=== PATIENT | male | born 2000 | race Caucasian/White ===

== ENCOUNTER 2024-04-11 10:44 | Emergency (ER) | payer MEDICAID, SELFPAY ==
[2024-04-11 10:44] VITALS: BP 97/67; PULSE 74; RESP 16; TEMP 36.6; O2SAT 98; BMI 19.8
[2024-04-11 11:19] LABS: Basophils % 0.4 %; Eosinophils # 0.1 10^3/uL (0.0-0.8); Eosinophils % 2.4 %; Hematocrit 42.7 % (37-53); Lymphocytes # 1.1 10^3/uL (0.8-4.8); Lymphocytes % 23.3 %; Mean Corpuscular HGB Conc 34.4 g/dL (30-55); Mean Corpuscular Hemoglobin 30.2 pg (27-33); Mean Corpuscular Volume 87.7 fl (82-101); Mean Platelet Volume 11.2 fL (7.4-10.4); Monocytes # 0.4 10^3/uL (0.2-0.9); Monocytes % 8.5 %; Neutrophils # 3.05 10^3/uL (1.8-7.7); Neutrophils % 65.2 %; Nucleated Red Blood Cells % 0 %; Platelet Count 171 10^3/cmm (157-399); Red Blood Count 4.87 10^6/uL (3.85-5.65); Red Cell Distribution Width 12.8 % (12.1-15.1); White Blood Count 4.68 10^3/uL (3.29-11.43)
[2024-04-11 11:34] LABS: Acetaminophen < 5.0 ug/mL (10-30); Alanine Aminotransferase 11 U/L (0-41); Albumin Level 4.5 g/dL (3.5-5.2); Alkaline Phosphatase 72 U/L (40-130); Anion Gap 14.1 (5-19); Aspartate Amino Transferase 14 U/L (0-40); Blood Urea Nitrogen 10 mg/dL (6-20); Carbon Dioxide 24 mmol/L (22-29); Chloride 107 mmol/L (98-107); Creatinine Clr Calc Pharmacy 130.1512; Globulin 2.6 g/dL (1.3-4.6); Glomerular Filtration Rate 118.8 mL/min (90-130); Glucose 102 mg/dL (65-115); Osmolality Calculated 291 mOsm/kg (285-295); Potassium 4.1 mmol/L (3.5-5.1); Salicylate < 0.3 mg/dL (3-10); Sodium 141 mmol/L (136-145); Total Bilirubin 0.5 mg/dL (0.15-1.2); Total Protein 7.1 g/dL (6.6-8.7)
--- NOTE | 2024-04-11 12:14 | ED.C_ITS ---
HPI - Psych 2 General: Chief Complaint: Psychiatric Symptoms Stated Complaint: MHE Time Seen by Provider: 04/11/24 10:49 History of Present Illness: This patient is a 24-year-old white male who presents to the emergency department after making a suicidal statement. Patient states he has been under a lot of stress at home. He is currently living with his father. Patient's andres? and their 2 children also live under their father's roof. Patient states he has been getting in arguments with his father on the weekends. States stress came to ahead today and he made a statement to his fisamy?e in the heat of the moment that he wanted to kill himself. Patient states that he does not feel like killing himself that this was just in the heat of the moment. Evidently police were called and they recommended he come into the emergency department for evaluation. Patient states he does have a history of depression and anxiety. States he did have a prior suicide attempt when he was a teenager but none since then. He states he had been on Lexapro couple of years ago which did work but he had stopped taking it. Other past medical history includes asthma. Related Data Previous Rx's Medication Instructions Recorded escitalopram oxalate 10 mg tablet 10 mg PO DAILY #30 tabs 04/11/24 (Lexapro) Allergies Allergy/AdvReac Type Severity Reaction Status Date / Time No Known Allergies Allergy Verified 04/11/24 10:53 Review of Systems 2 General: Reports: 10 or more systems reviewed and unremarkable except in HPI and below Physical Exam 2 Const: COMMON NORMALS: no acute distress, patient oriented x3 and no limitations GENERAL APPEARANCE: cooperative, comfortable and well kempt HENMT: COMMON NORMALS: normocephalic, atraumatic, Normal nasal mucous membranes and turbinates present, moist oral mucous membranes and oropharynx normal HEAD & SCALP: normal to inspection, normocephalic and atraumatic F WENDY & SINUS: normal facial exam NOSE: Normal nasal mucous membranes and turbinates present Eye: COMMON NORMALS: Equal, round and reactive pupils present, EOMs intact bilaterally and conjunctivae normal GENERAL EYE: appearance normal, both eyes and all related structures CONJUNCTIVA: Yes conjunctivae normal PUPIL: Yes Equal, round and reactive pupils present Neck/C-Spine: COMMON NORMALS: supple and no JVD Chest: COMMONS NORMALS: normal inspection of the chest Resp: COMMON NORMALS: normal respiratory effort and clear to auscultation bilaterally AUSCULTATION: clear to auscultation bilaterally Cardio: COMMON NORMALS: no JVD, regular rate, regular rhythm, No gallops present (Cardio), No murmurs present (Cardio) and No rub (Cardio) RATE: r egular rate RHYTHM: regular rhythm GI: COMMON NORMALS: Normal to inspection, nondistended, normoactive bowel sounds present, Soft to palpation and non-tender AUSCULTATION: Yes normoactive bowel sounds PALPATION: Yes Soft to palpation : COMMON NORMALS: Yes no CVA tenderness BLADDER/KIDNEY EXAM: Yes no CVA tenderness Back/Pelvis: COMMON NORMALS: no CVA tenderness and thoracic and lumbar spine normal to inspection Extremity: COMMON NORMALS: normal to inspection Neuro: COMMON NORMALS: patient oriented x3 and CN's II-XII intact bilaterally Psych: COMMON NORMALS: mental status grossly normal, Normal thought process present, cooperative and speech normal APPEARANCE: Yes grossly normal and Yes well kempt ATTITUDE: Yes calm and Yes engaged ACTIVITY/MOTOR BEHAVIOR: Yes appropriate eye contact SPEECH: Yes normal speech MOOD & AFFECT: Yes euthymic mood THOUGHT PROCESS: Normal thought process present THOUGHT CONTENT: Yes Normal thought content present ATTENTION/CONCENTRATION: Yes attention grossly intact MEMORY/COGNITION: Yes memory grossly intact I NSIGHT: Good insight present (Psych) JUDGEMENT: Good judgement present (Psych) Skin: COMMON NORMALS: no rashes or lesions noted, turgor normal and no jaundice GENERAL SKIN EXAM: no rashes or lesions noted and turgor normal Course 2 Vital Signs: Vital signs: Vital Signs Temperature 97.9 F 04/11/24 10:44 Pulse Rate 74 04/11/24 10:44 Respiratory Rate 16 04/11/24 10:44 Blood Pressure 97/67 04/11/24 10:44 Pulse Oximetry 98 04/11/24 10:44 Oxygen Delivery Me thod Room Air 04/11/24 10:44 [facility] - Psych Medical Decision Making After lengthy discussion with the patient the patient has not suicidal. States he made a mistake by making that statement in the heat of the moment. States he has 2 children and her fianc? that he loves very much and would not try to hurt himself. Simply has not been getting along with his father recently because he is living under his father's roof. I recommended he do everything we can to get back into a financial situation where he can move out and take care of his family on his own. Patient states that the Lexapro was working a couple of years ago. He is not sure why he stopped it. We will restart Lexapro at 10 mg. He does have a primary care physician that he can follow-up with and Kathy Davey. I recommended he follow-up in 2 weeks for recheck. He was discharged in stable condition. Lab Data 04/11/24 11:03 04/11/24 11:03 Laboratory Results WBC 4.68 10^3/uL (3.29-11.43) 04/11/24 11:03 RBC 4.87 10^6/uL (3.85-5.65) 04/11/24 11:03 Hgb 14.70 g/dL (11.27-16.99) 04/11/24 11:03 Hct 42.7 % (37-53) 04/11/24 11:03 MCV 87.7 fl (82-101) 04/11/24 11:03 MCH 30.2 pg (27-33) 04/11/24 11:03 MCHC 34.4 g/dL (30-55) 04/11/24 11:03 RDW 12.8 % (12.1-15.1) 04/11/24 11:03 Plt Count 171 10^3/cmm (157-399) 04/11/24 11:03 MPV 11.2 fL (7.4-10.4) H 04/11/24 11:03 Neut % (Auto) 65.2 % 04/11/24 11:03 Lymph % (Auto) 23.3 % 04/11/24 11:03 [place] % (Auto) 8.5 % 04/11/24 11:03 Eos % (Auto) 2.4 % 04/11/24 11:03 Baso % (Auto) 0.4 % 04/11/24 11:03 Neut # (Auto) 3.05 10^3/uL (1.8-7.7) 04/11/24 11:03 Lymph # (Auto) 1.1 10^3/uL (0.8-4.8) 04/11/24 11:03 [place] # (Auto) 0.4 10^3/uL (0.2-0.9) 04/11/24 11:03 Eos # (Auto) 0.1 10^3/uL (0.0-0.8) 04/11/24 11:03 Baso # (Auto) 0.0 10^3/uL (0.0-0.1) 04/11/24 11:03 Nucleated RBC % (auto) 0 % 04/11/24 11:03 Nucleated RBCs # 0.0 /100WBC 04/11/24 11:03 Sodium 141 mmol/L (136-145) 04/11/24 11:03 Potassium 4.1 mmol/L (3.5-5.1) 04/11/24 11:03 Chloride 107 mmol/L (98-107) 04/11/24 11:03 Carbon Dioxide 24 mmol/L (22-29) 04/11/24 11:03 Anion Gap 14.1 (5-19) 04/11/24 11:03 BUN 10 mg/dL (6-20) 04/11/24 11:03 Creatinine 0.8 mg/dL (0.7-1.2) 04/11/24 11:03 GFR Calculation 118.8 mL/min (90-130) 04/11/24 11:03 Glucose 102 mg/dL (65-115) 04/11/24 11:03 Calculated Osmolality 291 mOsm/kg (285-295) 04/11/24 11:03 Calcium 9.0 mg/dL (8.5-10.5) 04/11/24 11:03 Total Bilirubin 0.5 mg/dL (0.15-1.2) 04/11/24 11:03 AST 14 U/L (0-40) 04/11/24 11:03 ALT 11 U/L (0-41) 04/11/24 11:03 Alkaline Phosphatase 72 U/L (40-130) 04/11/24 11:03 Total Protein 7.1 g/dL (6.6-8.7) 04/11/24 11:03 Albumin 4.5 g/dL (3.5-5.2) 04/11/24 11:03 Globulin 2.6 g/dL (1.3-4.6) 04/11/24 11:03 Salicylates < 0.3 mg/dL (3-10) L 04/11/24 11:03 Acetaminophen < 5.0 ug/mL (10-30) L 04/11/24 11:03 No radiology studies performed this visit Discharge Plan Discharge Patient Disposition: Home Clinical Impression: Depression Condition: Stable Prescriptions: New escitalopram oxalate [Lexapro] 10 mg tablet 10 mg PO DAILY Qty: 30 2RF Discharge Orders: Discharge ED (Routine); Ordered 04/11/24 Ordered By: Dean Jones Referrals: [facility] [Provider Group] (Follow up in 2 weeks.) Discharge Activity: Resume usual activity Patient Instructions: Depression Coding Level of Care Code ED Manager Field Sales for Mariama Nolan
--- NOTE | 2024-04-11 12:22 | ED.C_ITS ---
HPI - Psych 2 General: Chief Complaint: Psychiatric Symptoms Stated Complaint: MHE Time Seen by Provider: 04/11/24 10:49 History of Present Illness: This patient is a 24-year-old white male who presents to the emergency department after making a suicidal statement. Patient states that he made a suicidal statement in the heat of the moment in front of his amaris. She had contacted the police when they arrived and recommended he come into the emergency department for evaluation. Patient states that he has been under a lot of stress due to family circumstances. States he made the statement and he will the moment and he did not mean it. He states he is not suicidal. He has 2 children and her fianc? that he loves very much and would never do that to them. He had no plan for suicide. Patient states he has been diagnosed with depression and anxiety in the past. He had been on Lexapro a couple of years ago but stopped taking it. He states it was working he is not sure why he stopped taking it. He has been under a lot of stress due to family situation. He is currently living with his andres?e and his 2 children at his father's house. States his dad and him get into it quite a bit on the weekends. Related Data Previous Rx's Medication Instructions Recorded escitalopram oxalate 10 mg tablet 10 mg PO DAILY #30 tabs 04/11/24 (Lexapro) Allergies Allergy/AdvReac Type Severity Reaction Status Date / Time No Known Allergies Allergy Verified 04/11/24 10:53 Review of Systems 2 General: Reports: 10 or more systems reviewed and unremarkable except in HPI and below Physical Exam 2 Const: COMMON NORMALS: no acute distress, patient oriented x3 and no limitations GENERAL APPEARANCE: cooperative and comfortable HENMT: COMMON NORMALS: normocephalic, atraumatic, Normal nasal mucous membranes and turbinates present, moist oral mucous membranes and oropharynx normal HEAD & SCALP: normal to inspection, normocephalic and atraumatic F WENDY & SINUS: normal facial exam NOSE: Normal nasal mucous membranes and turbinates present Eye: COMMON NORMALS: Equal, round and reactive pupils present, EOMs intact bilaterally and conjunctivae normal GENERAL EYE: appearance normal, both eyes and all related structures CONJUNCTIVA: Yes conjunctivae normal PUPIL: Yes Equal, round and reactive pupils present Neck/C-Spine: COMMON NORMALS: supple and no JVD Chest: COMMONS NORMALS: normal inspection of the chest Resp: COMMON NORMALS: normal respiratory effort and clear to auscultation bilaterally AUSCULTATION: clear to auscultation bilaterally Cardio: COMMON NORMALS: no JVD, regular rate, regular rhythm, No gallops present (Cardio), No murmurs present (Cardio) and No rub (Cardio) RATE: r egular rate RHYTHM: regular rhythm GI: COMMON NORMALS: Normal to inspection, nondistended, normoactive bowel sounds present, Soft to palpation and non-tender AUSCULTATION: Yes normoactive bowel sounds PALPATION: Yes Soft to palpation : COMMON NORMALS: Yes no CVA tenderness BLADDER/KIDNEY EXAM: Yes no CVA tenderness Back/Pelvis: COMMON NORMALS: no CVA tenderness and thoracic and lumbar spine normal to inspection Extremity: COMMON NORMALS: normal to inspection Neuro: COMMON NORMALS: patient oriented x3 and CN's II-XII intact bilaterally Psych: COMMON NORMALS: mental status grossly normal, Normal thought process present, cooperative and speech normal APPEARANCE: Yes grossly normal A TTITUDE: Yes calm and Yes engaged ACTIVITY/MOTOR BEHAVIOR: Yes appropriate eye contact SPEECH: Yes normal speech MOOD & AFFECT: Yes euthymic mood THOUGHT PROCESS: Normal thought process present THOUGHT CONTENT: Yes Normal thought content present and No Suicidality present ATTENTION/CONCENTRATION: Y es attention grossly intact MEMORY/COGNITION: Yes memory grossly intact I NSIGHT: Good insight present (Psych) JUDGEMENT: Good judgement present (Psych) Skin: COMMON NORMALS: no rashes or lesions noted, turgor normal and no jaundice GENERAL SKIN EXAM: no rashes or lesions noted and turgor normal Course 2 Vital Signs: Vital signs: Vital Signs Temperature 97.9 F 04/11/24 10:44 Pulse Rate 55 L 04/11/24 12:24 Respiratory Rate 16 04/11/24 10:44 Blood Pressure 109/70 04/11/24 12:24 Pulse Oximetry 98 04/11/24 12:24 Oxygen Delivery Me thod Room Air 04/11/24 10:44 MDM - Psych Medical Decision Making Patient is not suicidal. He does not require admission. He made a statement in the heat of the moment that he regrets. He would like to start Lexapro again. I did prescribe 10 mg/day. I recommended he follow-up with his primary care provider in 2 weeks for recheck. He was discharged in stable condition. Lab Data 04/11/24 11:03 04/11/24 11:03 Laboratory Results WBC 4.68 10^3/uL (3.29-11.43) 04/11/24 11:03 RBC 4.87 10^6/uL (3.85-5.65) 04/11/24 11:03 Hgb 14.70 g/dL (11.27-16.99) 04/11/24 11:03 Hct 42.7 % (37-53) 04/11/24 11:03 MCV 87.7 fl (82-101) 04/11/24 11:03 MCH 30.2 pg (27-33) 04/11/24 11:03 MCHC 34.4 g/dL (30-55) 04/11/24 11:03 RDW 12.8 % (12.1-15.1) 04/11/24 11:03 Plt Count 171 10^3/cmm (157-399) 04/11/24 11:03 MPV 11.2 fL (7.4-10.4) H 04/11/24 11:03 Neut % (Auto) 65.2 % 04/11/24 11:03 Lymph % (Auto) 23.3 % 04/11/24 11:03 [place] % (Auto) 8.5 % 04/11/24 11:03 Eos % (Auto) 2.4 % 04/11/24 11:03 Baso % (Auto) 0.4 % 04/11/24 11:03 Neut # (Auto) 3.05 10^3/uL (1.8-7.7) 04/11/24 11:03 Lymph # (Auto) 1.1 10^3/uL (0.8-4.8) 04/11/24 11:03 [place] # (Auto) 0.4 10^3/uL (0.2-0.9) 04/11/24 11:03 Eos # (Auto) 0.1 10^3/uL (0.0-0.8) 04/11/24 11:03 Baso # (Auto) 0.0 10^3/uL (0.0-0.1) 04/11/24 11:03 Nucleated RBC % (auto) 0 % 04/11/24 11:03 Nucleated RBCs # 0.0 /100WBC 04/11/24 11:03 Sodium 141 mmol/L (136-145) 04/11/24 11:03 Potassium 4.1 mmol/L (3.5-5.1) 04/11/24 11:03 Chloride 107 mmol/L (98-107) 04/11/24 11:03 Carbon Dioxide 24 mmol/L (22-29) 04/11/24 11:03 Anion Gap 14.1 (5-19) 04/11/24 11:03 BUN 10 mg/dL (6-20) 04/11/24 11:03 Creatinine 0.8 mg/dL (0.7-1.2) 04/11/24 11:03 GFR Calculation 118.8 mL/min (90-130) 04/11/24 11:03 Glucose 102 mg/dL (65-115) 04/11/24 11:03 Calculated Osmolality 291 mOsm/kg (285-295) 04/11/24 11:03 Calcium 9.0 mg/dL (8.5-10.5) 04/11/24 11:03 Total Bilirubin 0.5 mg/dL (0.15-1.2) 04/11/24 11:03 AST 14 U/L (0-40) 04/11/24 11:03 ALT 11 U/L (0-41) 04/11/24 11:03 Alkaline Phosphatase 72 U/L (40-130) 04/11/24 11:03 Total Protein 7.1 g/dL (6.6-8.7) 04/11/24 11:03 Albumin 4.5 g/dL (3.5-5.2) 04/11/24 11:03 Globulin 2.6 g/dL (1.3-4.6) 04/11/24 11:03 Salicylates < 0.3 mg/dL (3-10) L 04/11/24 11:03 Acetaminophen < 5.0 ug/mL (10-30) L 04/11/24 11:03 No radiology studies performed this visit Discharge Plan Discharge Patient Disposition: Home Clinical Impression: Depression Condition: Stable Prescriptions: New escitalopram oxalate [Lexapro] 10 mg tablet 10 mg PO DAILY Qty: 30 2RF Discharge Orders: Discharge ED (Routine); Ordered 04/11/24 Ordered By: Dean Jones Referrals: [facility] [Provider Group] (Follow up in 2 weeks.) Discharge Activity: Resume usual activity Patient Instructions: Depression Coding Level of Care Code ED Traffic Operations Engineer for Mariama Nolan
[2024-04-11 12:24] VITALS: BP 109/70; PULSE 55; O2SAT 98
== END 2024-04-11 12:25 | disposition home or self-care (01) ==
PROVIDERS: Family Medicine; Emergency Provider Emergency Medicine
DX: F32.A Depression, unspecified (principal)
CPT/HCPCS: 80053; 80307; 85025; 99283